=== PATIENT | male | born 1990 | race American Indian/Alaskan Native ===

== ENCOUNTER 2017-12-25 21:38 | Emergency (ER) | payer SELFPAY ==
[2017-12-25 21:56] VITALS: BP 150/98
== END 2017-12-26 01:30 | disposition left against medical advice (07) ==
LOC: ED 21:38
DX: K08.89 Other specified disorders of teeth and supporting structures (principal); K06.8 Other specified disorders of gingiva and edentulous alveolar ridge; Z53.21 Procedure and treatment not carried out due to patient leaving prior to being seen by health care provider

== ENCOUNTER 2018-01-27 10:53 | Emergency (ER) | payer SELFPAY ==
[2018-01-27 10:57] VITALS: BP 164/100
--- NOTE | 2018-01-27 11:11 | Emergency Department Report ---
ED ENT HPI - General Chief complaint: Dental/Oral Stated complaint: SWOLLEN FACE Time Seen by Provider: 01/27/18 11:05 Source: patient, family Mode of arrival: Ambulatory Limitations: No Limitations - History of Present Illness Initial comments: Patient report left upper back tooth pain and fracture with left facial swelling that started yesterday. Denies any sore throat or drooling. Denies any nasal congestion or runny nose, cough or cold. No difficulty swallowing. His blood pressure is 160/100 and denies any history of high blood pressure. Pain is rated as a 10 achy and worse with talking and insulin and no alleviating factors. MD complaint: tooth pain Onset/Timin -: days(s) Location: tooth # (15) 1 - Toothache with broken tooth Severity: severe Severity scale (0 -10): 8 Quality: aching Consistency: constant Improves with: none Worsens with: eating, movement Context- Dental: history of dental caries, poor dental care Associated Symptoms: gum swelling, toothache. denies: fever, cough, pain with swallowing, sore throat, tinnitus, hearing loss, discharge from ear, rhinorrhea - Related Data Previous Rx's Medication Instructions Recorded Last Taken Type Acetaminophen/Codeine [Tylenol 1 tab PO Q6H PRN #14 tab 01/27/18 Unknown Rx /Codeine # 3 tab] Clindamycin [Clindamycin CAP] 300 mg PO Q8H 30 Days #30 capsule 01/27/18 Unknown Rx Ibuprofen [Motrin] 600 mg PO Q8H PRN #12 tablet 01/27/18 Unknown Rx Allergies Allergy/AdvReac Type Severity Reaction Status Date / Time No Known Allergies Allergy Verified 01/27/18 10:54 ED Dental HPI - General Chief complaint: Dental/Oral Stated complaint: SWOLLEN FACE Time Seen by Provider: 01/27/18 11:05 Source: patient Mode of arrival: Ambulatory Limitations: No Limitations - Related Data Previous Rx's Medication Instructions Recorded Last Taken Type Acetaminophen/Codeine [Tylenol 1 tab PO Q6H PRN #14 tab 01/27/18 Unknown Rx /Codeine # 3 tab] Clindamycin [Clindamycin CAP] 300 mg PO Q8H 30 Days #30 capsule 01/27/18 Unknown Rx Ibuprofen [Motrin] 600 mg PO Q8H PRN #12 tablet 01/27/18 Unknown Rx Allergies Allergy/AdvReac Type Severity Reaction Status Date / Time No Known Allergies Allergy Verified 01/27/18 10:54 ED Review of Systems ROS: Stated complaint: SWOLLEN FACE Other details as noted in HPI Comment: All other systems reviewed and negative Constitutional: denies: chills, fever ENT: dental pain. denies: ear pain, throat pain, epistaxis, congestion Respiratory: denies: cough, shortness of breath, wheezing Cardiovascular: denies: chest pain, palpitations, dyspnea on exertion, edema, syncope Gastrointestinal: denies: nausea, vomiting Musculoskeletal: denies: back pain, joint swelling, arthralgia Skin: denies: rash Neurological: denies: headache ED Past Medical Hx - Past Medical History Previous Medical History?: No - Surgical History Past Surgical History?: Yes Additional Surgical History: bilateral ligement severed as a child - Family History Family history: hypertension - Social History Smoking Status: Current Every Day Smoker Substance Use Type: Marijuana - Medications Home Medications: Home Medications Medication Instructions Recorded Confirmed Last Taken Type Acetaminophen/Codeine [Tylenol 1 tab PO Q6H PRN #14 tab 01/27/18 Unknown Rx /Codeine # 3 tab] Clindamycin [Clindamycin CAP] 300 mg PO Q8H 30 Days #30 capsule 01/27/18 Unknown Rx Ibuprofen [Motrin] 600 mg PO Q8H PRN #12 tablet 01/27/18 Unknown Rx ED Physical Exam - General Limitations: No Limitations General appearance: alert, in no apparent distress - Head Head exam: Present: atraumatic, normocephalic, normal inspection - Eye Eye exam: Present: normal appearance, PERRL, EOMI Pupils: Present: normal accommodation - ENT ENT exam: Present: normal orophraynx, mucous membranes moist, TM's normal bilaterally, normal external ear exam - Expanded ENT Exam Expanded Mouth exam: Present: normal external inspection, other (no submental lymphadenopathy). Absent: drooling, trismus, muffled voice, tongue normal, tongue elevation, laceration Teeth exam: Present: dental caries, fractured tooth # (#15), dental tenderness # (#15), gingival enlargement, other (left facial swelling) 1 - Fractured (#15 with no pulp exposure), Dental Tenderness (#15), Other Throat exam: Positive: normal inspection - Neck Neck exam: Present: normal inspection, full ROM, other (no C-spine tenderness). Absent: tenderness, lymphadenopathy - Respiratory Respiratory exam: Present: normal lung sounds bilaterally. Absent: respiratory distress, chest wall tenderness - Cardiovascular Cardiovascular Exam: Present: regular rate, normal rhythm, normal heart sounds. Absent: systolic murmur, diastolic murmur - Extremities Exam Extremities exam: Present: normal inspection, full ROM, normal capillary refill. Absent: tenderness, pedal edema, joint swelling, calf tenderness - Neurological Exam Neurological exam: Present: alert, oriented X3, normal gait - Psychiatric Psychiatric exam: Present: normal affect, normal mood - Skin Skin exam: Present: warm, dry, normal color. Absent: rash ED Course Vital Signs 01/27/18 10:54 Temperature 98.2 F Pulse Rate 63 Respiratory 18 Rate Blood Pressure 164/100 O2 Sat by Pulse 100 Oximetry - Reevaluation(s) Reevaluation #1: 01/27/18 11:21 Patient given 5 cm she is referred to Emergency room along with clindamycin 600 mg by mouth. For her toothache and abscess ED Medical Decision Making - Medical Decision Making This is a 27-year-old male here report that he is having toothache since yesterday. He said he woke up this morning and facial swelling. No dental visit for a while. He said upper left back tooth is broken. Patient was seen and examined by myself. Oral mucosa moist with no pharyngeal erythema or exudate. Uvula is midline and tongue is normal. Patient with tooth #15 with partial fracture and no palpable exposure seen., Positive tenderness around tooth #15 with dental caries upper and lower tooth. Patient left facial swelling with no erythema, induration otherwise physical exam is normal with no submental or cervical lymphadenopathy. Patient was given pain medication and antibiotic emergency room. I discussed with him that he will need to see a dentist to fix underlying problem but he will need to be an antibiotic for at least 5 days. He voiced understanding A/P Tooth fracture #15-referred to [facility] Gingivitis and abscessed tooth-started on clindamycin 600 mg by mouth and was sent home on clindamycin by mouth. Toothache #15-5/325 mg 2 tablet given by mouth relief of pain and was sent home in Tylenol No. 3 and Motrin. Pain is controlled Elevated blood pressure with no history of hypertension-referred to [facility] primary care and to keep a log of his blood pressure and take to visit with him Dental caries-referral to [facility] Patient discharged home in stable condition, his blood pressure is mildly elevated without any history of high blood pressure so he was instructed to keep a log and follow up at [facility] in 3-5 days since he does not have a primary care. Pain is controlled. She is afebrile. Patient also referred to [facility] to call tomorrow to schedule an appointment and he voiced understanding . Discharged home with family prescription for Motrin, Tylenol 3 and then the clindamycin - Differential Diagnosis MANAGEMENT ANALYST, strep throat, sinusitis, dental abscess, fracture tooth, carries Critical care attestation.: If time is entered above; I have spent that time in minutes in the direct care of this critically ill patient, excluding procedure time. ED Disposition Clinical Impression: Tooth ache, Abscessed tooth, Gingivitis, Dental caries Tooth fracture Qualifiers: Encounter type: initial encounter Fracture type: closed Qualified Code(s): S02.5XXA - Fracture of tooth (traumatic), initial encounter for closed fracture Disposition: DC- TO HOME OR SELFCARE Is pt being admited?: No Does the pt Need Aspirin: No Condition: Stable Instructions: Dental Caries (ED), Toothache (ED), Dental Abscess (ED), Gingivitis (ED) Additional Instructions: Please follow up with dentist as discussed. See alternative dentist and discharge instruction paperwork if needed. Take Motrin for mild to moderate pain and please take this medication with food. Take tylenol #3 for severe pain and please do not drive or operate heavy machinery while taking this medication. Take clindamycin for tooth infection Please see floss twice daily Gargle with Listerine twice a day Prescriptions: Acetaminophen/Codeine [Tylenol /Codeine # 3 tab] 1 tab PO Q6H PRN #14 tab PRN Reason: moderate to severe pain Clindamycin [Clindamycin CAP] 300 mg PO Q8H 30 Days #30 capsule Ibuprofen [Motrin] 600 mg PO Q8H PRN #12 tablet PRN Reason: Pain Referrals: PRIMARY CARE,MD [Primary Care Provider] - 3-[address] [facility] [Outside] - 3-5 Days [facility] [Outside] - 3-5 Days Forms: Work/School Release Form(ED)
[2018-01-27] MEDS ORDERED: CLEOCIN PO ONE (11:12)
[2018-01-27] MEDS ORDERED: NORCO 5/325 PO ONE (11:12)
== END 2018-01-27 11:42 | disposition home or self-care (01) ==
LOC: ED 10:53
DX: S02.5XXA Fracture of tooth (traumatic), initial encounter for closed fracture (principal); K05.10 Chronic gingivitis, plaque induced; K02.9 Dental caries, unspecified; K04.7 Periapical abscess without sinus; F17.200 Nicotine dependence, unspecified, uncomplicated; F12.10 Cannabis abuse, uncomplicated; X58.XXXA Exposure to other specified factors, initial encounter; Y93.89 Activity, other specified; Y92.89 Other specified places as the place of occurrence of the external cause; Y99.8 Other external cause status
CPT/HCPCS: 99282

== ENCOUNTER 2018-12-19 16:33 | Emergency (ER) | payer BC ==
[2018-12-19 16:58] VITALS: BP 140/91
--- NOTE | 2018-12-19 16:59 | Emergency Department Report ---
Blank Doc - Documentation Documentation: 28 y o male presents to Ed cc of left foot pain x 2-3 days denies injury or trauma states movement makes it worse ambulatory [facility]
--- NOTE | 2018-12-19 20:26 | Emergency Department Report ---
ED Lower Extremity HPI - General Chief Complaint: Extremity Problem,Nontraumatic Stated Complaint: LT FOOT PAIN Time Seen by Provider: 12/19/18 16:57 Source: patient Mode of arrival: Ambulatory Limitations: No Limitations - History of Present Illness Initial Comments: This is a 28-year-old male nontoxic, well nourished in appearance, no acute signs of distress presents to the ED with c/o of left foot pain 2 days. Patient stated that it started at work while twisting foot. Patient denies any trauma. Patient denies any numbness, tingling, fever, chills, nausea, vomiting, chest pain, shortness of breath, headache, stiff neck. Patient denies any joint swelling or joint redness. Patient denies decreased range of motion. Patient stated has decreased gait due to pain. Patient denies any allergies or significant past medical history. MD Complaint: foot injury -: days(s) (2) Injury: Foot: Left Place: home Severity: mild Severity scale (0 -10): 8 Improves With: immobilization Worsens With: weight bearing, movement, palpation Associated Symptoms: able to partially bear weight, ambulatory. denies: snap/pop sensation, swelling, numbness, tingling, unable to bear weight - Related Data Previous Rx's Medication Instructions Recorded Last Taken Type Acetaminophen/Codeine [Tylenol 1 tab PO Q6H PRN #14 tab 01/27/18 Unknown Rx /Codeine # 3 tab] Clindamycin [Clindamycin CAP] 300 mg PO Q8H 30 Days #30 capsule 01/27/18 Unknown Rx Ibuprofen [Motrin] 600 mg PO Q8H PRN #12 tablet 01/27/18 Unknown Rx Acetaminophen/Codeine [Tylenol 1 tab PO Q6H PRN #12 tab 12/19/18 Unknown Rx /Codeine # 3 tab] Ibuprofen [Motrin] 600 mg PO Q8H PRN #20 tablet 12/19/18 Unknown Rx Allergies Allergy/AdvReac Type Severity Reaction Status Date / Time shrimp AdvReac Unknown Verified 12/19/18 16:59 ant bite AdvReac Swelling Uncoded 12/19/18 16:59 ED Review of Systems ROS: Stated complaint: LT FOOT PAIN Other details as noted in HPI Constitutional: denies: chills, fever Eyes: denies: eye pain, eye discharge, vision change ENT: denies: ear pain, throat pain Respiratory: denies: cough, shortness of breath, wheezing Cardiovascular: denies: chest pain, palpitations Endocrine: no symptoms reported Gastrointestinal: denies: abdominal pain, nausea, diarrhea Genitourinary: denies: urgency, dysuria Musculoskeletal: arthralgia. denies: back pain, joint swelling Skin: denies: rash, lesions Neurological: denies: headache, weakness, paresthesias Psychiatric: denies: anxiety, depression Hematological/Lymphatic: denies: easy bleeding, easy bruising ED Past Medical Hx - Past Medical History Previous Medical History?: No - Surgical History Past Surgical History?: Yes Additional Surgical History: bilateral ligement severed as a child - Social History Smoking Status: Current Every Day Smoker Substance Use Type: None - Medications Home Medications: Home Medications Medication Instructions Recorded Confirmed Last Taken Type Acetaminophen/Codeine [Tylenol 1 tab PO Q6H PRN #14 tab 01/27/18 Unknown Rx /Codeine # 3 tab] Clindamycin [Clindamycin CAP] 300 mg PO Q8H 30 Days #30 capsule 01/27/18 Unknown Rx Ibuprofen [Motrin] 600 mg PO Q8H PRN #12 tablet 01/27/18 Unknown Rx Acetaminophen/Codeine [Tylenol 1 tab PO Q6H PRN #12 tab 12/19/18 Unknown Rx /Codeine # 3 tab] Ibuprofen [Motrin] 600 mg PO Q8H PRN #20 tablet 12/19/18 Unknown Rx ED Physical Exam - General Limitations: No Limitations General appearance: alert, in no apparent distress - Head Head exam: Present: atraumatic, normocephalic - Neck Neck exam: Present: normal inspection, full ROM. Absent: tenderness, meningismus, lymphadenopathy - Extremities Exam Extremities exam: Present: normal inspection, full ROM, tenderness, normal capillary refill. Absent: joint swelling - Expanded Lower Extremity Exam Left Hip exam: Present: normal inspection, full ROM. Absent: tenderness Upper Leg exam: Present: normal inspection, full ROM. Absent: tenderness Knee exam: Present: normal inspection, full ROM. Absent: tenderness, swelling Lower Leg exam: Present: normal inspection, full ROM. Absent: tenderness, swelling Ankle exam: Present: normal inspection, full ROM. Absent: tenderness, swelling Foot/Toe exam: Present: normal inspection, full ROM, tenderness. Absent: swelling, abrasion, laceration, ecchymosis, deformity, crepidus, dislocation, erythema, amputation, puncture wound, foreign body, calcaneal tenderness, tenderness at base of 5th metatarsal, nail avulsion, subungual hematoma Neuro vascular tendon exam: Present: no vascular compromise Gait: Positive: observed and limited by pain 1 - pain here - Back Exam Back exam: Present: normal inspection, full ROM - Neurological Exam Neurological exam: Present: alert, oriented X3 - Psychiatric Psychiatric exam: Present: normal affect, normal mood - Skin Skin exam: Present: warm, dry, intact, normal color. Absent: rash ED Course Vital Signs 12/19/18 16:56 Temperature 98.4 F Pulse Rate 78 Respiratory 16 Rate Blood Pressure 140/91 O2 Sat by Pulse 98 Oximetry - Reevaluation(s) Reevaluation #1: 12/19/18 20:24 Patient is speaking in full sentences with no signs of distress noted. ED Lower Extremity MDM - Medical Decision Making This is a 28-year-old male that presents with left foot strain. Patient is stable and was examined by me. I referred patient to an orthopedic doctor for further evaluation for possible MRI. X-ray has been obtained and dictated by the radiologist. Patient is notified of the x-ray report with noted by the patient. Patient does have normal gait with no tenderness and no joint swelling. No ecchymosis. no joint redness or swelling. Not warm to touch. No signs of cellulites present. Patient was instructed to RICE therapy. Patient received Motrin for pain. Patient is discharged with Motrin. At time of discharge, the patient does not seem toxic or ill in appearance. No acute signs of distress noted. Patient agrees to discharge treatment plan of care. No further questions noted by the patient. Critical care attestation.: If time is entered above; I have spent that time in minutes in the direct care of this critically ill patient, excluding procedure time. ED Disposition Clinical Impression: Strain of left foot Qualifiers: Encounter type: initial encounter Qualified Code(s): S96.912A - Strain of unspecified muscle and tendon at ankle and foot level, left foot, initial encounter Disposition: DC-01 TO HOME OR SELFCARE Is pt being admited?: No Does the pt Need Aspirin: No Condition: Stable Instructions: RICE Therapy (ED), Acetaminophen/Codeine (By mouth) Additional Instructions: Follow-up with a orthopedic doctor in 3-5 days or if symptoms worsen and continu e return to emergency room as soon as possible. Do not operate any machinery while taking Tylenol with codeine as this may cause drowsiness. Prescriptions: Ibuprofen [Motrin] 600 mg PO Q8H PRN #20 tablet PRN Reason: Pain Acetaminophen/Codeine [Tylenol /Codeine # 3 tab] 1 tab PO Q6H PRN #12 tab PRN Reason: Pain , Severe (7-10) Referrals: YONIS ALMAZAN MD [Primary Care Provider] - 3-5 Days PRIMARY CARE, [Referring] - 3-5 Days HUONG VIERA MD [Staff Physician] - 3-5 Days [facility] [Outside] - 3-5 Days Forms: Work/School Release Form(ED)
--- NOTE | 2018-12-19 21:26 | XRay Report ---
PROCEDURE: XR FOOT 3+V LT HISTORY: left foot pain FINDINGS: AP, lateral and oblique views of the left foot were acquired and demonstrate no fracture or malalignment of the left foot. There is no plantar calcaneal spur IMPRESSION: No fracture is seen in the left foot This document is electronically signed by Andres Lares MD., December 19 2018 09:24:06 PM ET
== END 2018-12-19 21:35 | disposition home or self-care (01) ==
LOC: ED 16:33
DX: S96.912A Strain of unspecified muscle and tendon at ankle and foot level, left foot, initial encounter (principal); F17.200 Nicotine dependence, unspecified, uncomplicated; Z79.1 Long term (current) use of non-steroidal anti-inflammatories (NSAID); Z79.899 Other long term (current) drug therapy; Z91.013 Allergy to seafood; X50.1XXA Overexertion from prolonged static or awkward postures, initial encounter; Y93.89 Activity, other specified; Y92.69 Other specified industrial and construction area as the place of occurrence of the external cause; Y99.8 Other external cause status

== ENCOUNTER 2019-08-05 10:32 | Emergency (ER) | payer SELFPAY ==
[2019-08-05 11:08] VITALS: BP 155/88
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
--- NOTE | 2019-08-05 12:18 | XRay Report ---
RIGHT KNEE HISTORY: 18. COMPARISON: None. TECHNIQUE: 4 views of the right knee obtained. FINDINGS: Bones: No fracture or dislocation. Joint spaces: Maintained. Soft tissues: No significant abnormality. Additional findings: No joint effusion. IMPRESSION: 1. No significant abnormality. Signer Name: Miguel Francois MD Signed: 08/05/2019 12:13 PM Workstation Name: [id number]
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
== END 2019-08-05 12:47 | disposition home or self-care (01) ==
LOC: ED 10:32
DX: S83.91XA Sprain of unspecified site of right knee, initial encounter (principal); S39.012A Strain of muscle, fascia and tendon of lower back, initial encounter; F17.200 Nicotine dependence, unspecified, uncomplicated; V49.59XA Passenger injured in collision with other motor vehicles in traffic accident, initial encounter; Y93.89 Activity, other specified; Y92.89 Other specified places as the place of occurrence of the external cause; Y99.8 Other external cause status
CPT/HCPCS: 99283